=== PATIENT | male | born 1960 | race Caucasian/White ===

== ENCOUNTER 2016-07-08 23:45 | Emergency (ER) | payer BC ==
[2016-07-09] MEDS ORDERED: Sodium Chloride 0.9% 1000 ML 1,000 ML IV STA (00:15)
[2016-07-09] MEDS ORDERED: BENADRYL 50 MG/ML IV ONE (00:15)
[2016-07-09] MEDS ORDERED: MORPHINE SULFATE 10 MG/ML IV ONE (00:15)
[2016-07-09] MEDS ORDERED: MORPHINE SULFATE 10 MG/ML ONE (00:20)
[2016-07-09] MEDS ORDERED: BENADRYL 50 MG/ML ONE (00:20)
[2016-07-09] MEDS ORDERED: Sodium Chloride 0.9% 1000 ML 1,000 ML ONE (00:20)
[2016-07-09 00:30] LABS: Mean Cell Volume 84.8 fl (78-100); Mean Corpuscular Hemoglobin 28.8 pg (26-32); Mean Platelet Volume 9.1 fl (6-9.5); Platelet Count 264 K/mm3 (150-450); Red Blood Count 4.93 M/mm3 (4.1-5.6); Red Cell Distribution Width 12.5 % (11.5-14.0); White Blood Count 11.4 K/mm3 (4.0-10.5)
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
[2016-07-09 00:42] LABS: COMPLETE URINE MICROSCOPIC? YES; Collection Type CLEAN CATCH; Mucus SLIGHT /HPF (NEGATIVE); WBC 0-2 /HPF (0-5)
[2016-07-09 00:43] LABS: Bacteria FEW /HPF (NEGATIVE); Epithelial Cells RARE /HPF (FEW)
[2016-07-09] MEDS ORDERED: MORPHINE SULFATE 4 MG INJ IV ONE (00:52)
[2016-07-09 00:57] LABS: ALBUMIN 3.4 g/dL (3.4-5.0); ALKALINE PHOSPHATASE 74 U/L (46-116); ANION GAP 10.6 MEQ/L (5-15); BILIRUBIN,TOTAL 0.3 mg/dL (0.2-1.0); BLOOD UREA NITROGEN 17 mg/dL (9-20); CHLORIDE 103 mEq/L (98-107); Carbon Dioxide 30.3 mEq/L (21-32); Glucose 102 MG/DL (70-110); Potassium 3.3 mEq/L (3.5-5.1); SGOT/AST 16 U/L (15-37); SGPT/ALT 48 U/L (12-78); SODIUM 141 mEq/L (136-145); Total Protein 7.4 gm/dL (6.4-8.2)
[2016-07-09] MEDS ORDERED: TORAdol 30 mg Injection IV ONE (00:59)
[2016-07-09] MEDS ORDERED: MORPHINE SULFATE 4 MG INJ ONE (01:01)
[2016-07-09] MEDS ORDERED: TORAdol 30 mg Injection ONE (01:04)
[2016-07-09 01:26] LABS: ATYPICAL LYMPHS 1 %; BAND 2 % (0.0-2.0); Platelet Estimate NORMAL (NORMAL); Total Cells Counted 100
[2016-07-09] MEDS ORDERED: NORCO 5/325 MG PO ONE ×2 (03:40)
[2016-07-09] MEDS ORDERED: ZOFRAN ODT 4 MG PO ONE (03:41)
[2016-07-09] MEDS ORDERED: NORCO 5/325 MG ONE (03:44)
[2016-07-09] MEDS ORDERED: ZOFRAN ODT 4 MG ONE (03:44)
[2016-07-09 04:28] VITALS: BP 144/96; PULSE 70; O2SAT 95
--- NOTE | 2016-07-09 09:03 | XRAY ---
Indication: Left flank pain. Multiple contiguous axial images obtained through the abdomen and pelvis without contrast using renal stone protocol. Comparison: None Lung bases demonstrates minimal bibasilar dependent atelectasis. Heart is not enlarged. There is a 1 cm left UVJ calculus with a portion of the calculus in the bladder lumen. The proximal left ureter is prominent along with moderate hydronephrosis and perinephric stranding consistent with obstructive uropathy. No renal calculus or evidence for obstructive uropathy in the right system. Noncontrasted stomach and bowel loops appear nonobstructed. Scattered descending/sigmoid diverticulosis. Normal appendix. No free fluid/air. 13.8 cm splenomegaly. Remaining liver, gallbladder, pancreas, adrenal glands, and urinary bladder appear unremarkable for noncontrast exam. Minimal aortoiliac calcifications without AAA. Osseous structures intact with minimal spinal degenerative changes. Impression: 1. 1 cm left UVJ calculus producing partial obstruction as detailed. 2. Incidental splenomegaly and colonic diverticulosis. Comment: Preliminary interpretation was made by [facility]. No critical discrepancy. CT DI is 22.84
== END 2016-07-09 04:29 | disposition home or self-care (01) ==
LOC: ED 23:45
DX: N23 Unspecified renal colic (principal); N20.1 Calculus of ureter
CPT/HCPCS: 36000; 36415; 74176; 80053; 81000; 85025; 87086; 96360; 96374; 96375; 99283; J1200; J1885; J2270; Q0162

== ENCOUNTER 2017-02-22 19:22 | Emergency (ER) | payer BC ==
[2017-02-22 19:31] VITALS: BP 146/92
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
[2017-02-22] MEDS ORDERED: Norco 10/325 MG Tablet PO ONE (20:36)
[2017-02-22] MEDS ORDERED: Norco 10/325 MG Tablet ONE (20:39)
[2017-02-22 20:46] VITALS: PULSE 62; O2SAT 99
--- NOTE | 2017-02-23 08:52 | XRAY ---
Indication: Pain. No known injury. Comparison: None 3 views of the left hand demonstrates punctate radial wrist and thenar eminence soft tissue foreign bodies. No other bony, articular, or soft tissue abnormalities.
== END 2017-02-22 20:46 | disposition home or self-care (01) ==
LOC: ED 19:22
DX: D36.10 Benign neoplasm of peripheral nerves and autonomic nervous system, unspecified (principal); M79.642 Pain in left hand
CPT/HCPCS: 73130; 99283; 99284; A9270-GY

== ENCOUNTER 2017-10-10 18:42 | Emergency (ER) | payer BC ==
[2017-10-10] MEDS ORDERED: TORAdol 30 mg Injection IV ONE (19:21)
[2017-10-10] MEDS ORDERED: TORAdol 30 mg Injection ONE (19:24)
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
[2017-10-10 19:49] LABS: BASOPHIL % 0.3 % (0.0-0.4); Basophil (Absolute #) 0.03 (0-0.4); Eosinophil % 0.2 % (0.00-5.0); Eosinophil (Absolute #) 0.02 (0-0.5); Granulocyte Absolute (ANC) 8.42 (1.4-6.9); Granulocytes % 74.7 % (36.0-66.0); Hematocrit 41.5 % (42-50); Hemoglobin 14.2 gm/dl (12.5-18.0); Lymphocyte (Absolute #) 1.75 (1.0-4.6); Lymphocytes % 15.5 % (24.0-44.0); Mean Cell Volume 82.7 fl (78-100); Mean Corpuscular Hemoglobin 28.3 pg (26-32); Mean Corpuscular Hgb Concent. 34.2 g/dl (32-36); Mean Platelet Volume 9.6 fl (6-9.5); Monocyte (Absolute #) 1.05 (0.0-1.3); Monocytes % 9.3 % (0.0-12.0); Platelet Count 236 K/mm3 (150-450); Red Blood Count 5.02 M/mm3 (4.1-5.6); Red Cell Distribution Width 12.6 % (11.5-14.0); White Blood Count 11.3 K/mm3 (4.0-10.5)
[2017-10-10 19:50] LABS: Appearance CLEAR (CLEAR); Bilirubin NEGATIVE (NEGATIVE); Blood NEGATIVE Ery/ul (0-5); Glucose NEGATIVE (NEGATIVE); Ketones NEGATIVE (NEGATIVE); Leukocyte Esterase NEGATIVE (NEGATIVE); Nitrite NEGATIVE (NEGATIVE); Protein,Urine Dip NEGATIVE (Negative); Urobilinogen NORMAL mg/dL (0-1)
[2017-10-10 19:56] LABS: ANION GAP 12.5 MEQ/L (5-15); BLOOD UREA NITROGEN 23 mg/dL (9-20); CHLORIDE 104 mmol/L (98-107); Calcium 9.2 mg/dL (8.4-10.2); Carbon Dioxide 27 mmol/L (22-30); Creatinine 1 1.26 mg/dL (0.66-1.25); Glucose 102 mg/dL (74-106); SODIUM 140 mmol/L (137-145)
[2017-10-10] MEDS ORDERED: NORCO 5/325 MG PO ONE (22:15)
[2017-10-10] MEDS ORDERED: NORCO 5/325 MG ONE (22:17)
[2017-10-10 22:21] VITALS: O2SAT 97
[2017-10-10 22:36] VITALS: BP 146/86; PULSE 72
--- NOTE | 2017-10-11 08:46 | XRAY ---
Indication: Rib pain, right greater than left. Multiple contiguous axial images obtained through the chest using 80 cc Isovue 370 contrast. Comparison: None Mild bilateral dependent atelectasis. No suspicious pulmonary mass, infiltrate, or effusion. Heart is not enlarged. Aorta is normal in course and caliber. Right hilar calcified node. No pathologic mediastinal/hilar lymphadenopathy. Bony thorax intact with minimal spinal bridging osteophytes. CT abdomen reported separately. Impression: Bilateral dependent atelectasis. Remaining CT chest with contrast exam is negative. Comment: Preliminary interpretation was made by [facility]. No discrepancy. CT DI 22.45
--- NOTE | 2017-10-11 08:50 | XRAY ---
Indication: Rib/back pain, right greater than left. Multiple contiguous axial images obtained through the abdomen and pelvis using 80 cc Isovue 370 contrast. Comparison: CT renal stone study July 09, 2016. CT chest reported separately. Noncontrasted stomach and bowel loops appear nonobstructed. Normal appendix. Again descending/sigmoid diverticulosis without diverticulitis. No free fluid/air. Spleen remains enlarged measuring 13.5 cm in greatest axial dimension. Remaining liver, gallbladder, pancreas, spleen, adrenal glands, kidneys, ureters, and bladder appear unremarkable. There remains minimal aortoiliac calcifications. No AAA or pathologic retroperitoneal lymphadenopathy. Osseous structures intact again with minimal spinal degenerative changes. Impression: 1. Stable colonic diverticulosis and splenomegaly. 2. No new or acute intra-abdominal/pelvic abnormalities. Comment: Preliminary interpretation was made by [facility]. No critical discrepancy. CT DI 22.42
== END 2017-10-10 22:37 | disposition home or self-care (01) ==
LOC: ED 18:42
DX: V29.9XXA Motorcycle rider (driver) (passenger) injured in unspecified traffic accident, initial encounter (principal); M54.6 Pain in thoracic spine; K21.9 Gastro-esophageal reflux disease without esophagitis; Z79.899 Other long term (current) drug therapy
CPT/HCPCS: 36000; 36415; 71260; 74177; 80048; 81002; 85025; 96374; 99283; 99284; J1885; A9270-GY

== ENCOUNTER 2019-02-13 20:43 | Emergency (ER) | payer BC ==
[2019-02-13 21:21] VITALS: O2SAT 97
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
[2019-02-13 22:42] VITALS: BP 149/91; PULSE 88
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
== END 2019-02-13 22:42 | disposition home or self-care (01) ==
LOC: ED 20:43
DX: S52.502A Unspecified fracture of the lower end of left radius, initial encounter for closed fracture (principal); S60.212A Contusion of left wrist, initial encounter; M25.532 Pain in left wrist; V86.56XA Driver of dirt bike or motor/cross bike injured in nontraffic accident, initial encounter; Y93.55 Activity, bike riding
CPT/HCPCS: 73110; 99283; L3908

== ENCOUNTER 2020-06-09 13:08 | Emergency (ER) | payer BC ==
[2020-06-09] MEDS ORDERED: Rocephin 1000 MG INJ IM ONE (13:25)
[2020-06-09] MEDS ORDERED: CLEOCIN 150 MG CAPSULE PO ONE (13:26)
[2020-06-09] MEDS ORDERED: CLEOCIN 150 MG CAPSULE ONE (13:27)
[2020-06-09] MEDS ORDERED: XYLOCAINE 1% HCL 20 ML MDV ONE (13:28)
[2020-06-09] MEDS ORDERED: Rocephin 1000 MG INJ ONE (13:28)
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
[2020-06-09 13:38] VITALS: BP 147/89; PULSE 81; O2SAT 98
== END 2020-06-09 13:48 | disposition home or self-care (01) ==
LOC: ED 13:08
DX: L03.116 Cellulitis of left lower limb (principal)
CPT/HCPCS: 96372; 99283; J0696; A9270-GY

== ENCOUNTER 2020-07-17 05:46 | Day surgery (SDC) | payer BC ==
[2020-07-17] MEDS ORDERED: Lactated Ringers 1,000 ML IV SCH (06:30)
[2020-07-17] MEDS ORDERED: DIPRIVAN 200 MG/20 ML IV ONE (07:28)
[2020-07-17] MEDS ORDERED: Xylocaine-Mpf 2% 5 Ml Vial ONE (07:28)
[2020-07-17 08:49] VITALS: BP 138/83; PULSE 60; O2SAT 99
--- NOTE | 2020-07-17 09:47 | OP ---
SURGERY DATE/TIME: 07/17/2020 0733 PREOPERATIVE DIAGNOSES: 1) Rectal bleeding. 2) Family history of esophageal cancer. POSTOPERATIVE DIAGNOSES: 1) Gastric polyps. 2) Diverticulosis. 3) Rectal polyp. PROCEDURES: 1) Diagnostic EGD. 2) Colonoscopy. SURGEON: Wilmar Lubin M.D. ANESTHESIA: MAC by Elver Patricio CRNA. ESTIMATED BLOOD LOSS: Minimal. SPECIMENS: There was cold forceps biopsy of gastric polyps x2 and cold forceps polypectomy of small rectal polyp. DESCRIPTION OF PROCEDURE: After informed written consent was obtained, the patient was taken to the endoscopy suite. Bite block was inserted and anesthesia was titrated to desired level of consciousness. The endoscope was inserted in the posterior oropharynx and under direct visualization the esophagus was easily traversed. The esophageal mucosa appeared normal as well as the gastroesophageal junction. Upon entry into the gastric cavity there was rugated gastric mucosa with numerous fundal gland polyps present with no obvious ulceration, bleeding or other abnormalities. The pylorus was traversed and the duodenum had a normal mucosal appearance free of any lesion or defects. Two sales training representative fundal gland polyps were biopsied with cold forceps and sent for pathology testing. Upon withdrawal again the gastroesophageal junction and esophageal mucosa appeared within normal limits. The scope was removed and the scopes were switched. Digital rectal exam showed normal sphincter tone and no internal lesions. The scope was inserted in the rectum and sequentially the entire colonic mucosa was traversed. The level of the cecum was reached and verified with direct visualization of the ileocecal valve. Upon withdrawal careful mucosal inspection revealed no gross abnormalities until the level of the proximal rectum was reached. Small sessile polyps were removed with cold forceps. Retroflexion showed no other internal lesions. The scope was removed and the patient was transferred to the recovery room in good condition. He was advised to follow up in a week for pathology results.
== END 2020-07-17 09:05 | disposition home or self-care (01) ==
LOC: SDC 05:46
PROVIDERS: ATTEND Family Medicine
DX: K31.7 Polyp of stomach and duodenum (principal); K57.30 Diverticulosis of large intestine without perforation or abscess without bleeding; K62.1 Rectal polyp; Z80.0 Family history of malignant neoplasm of digestive organs
CPT/HCPCS: 88305; J2704

== ENCOUNTER 2021-01-16 19:42 | Emergency (ER) | payer BC ==
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
[2021-01-16] MEDS ORDERED: Sodium Chloride 0.9% 1000 ML 1,000 ML IV STA (19:58)
[2021-01-16] MEDS ORDERED: Zofran 4 MG/2 ML VIAL IV ONE (20:00)
[2021-01-16] MEDS ORDERED: Sodium Chloride 0.9% 1000 ML 0 ML ONE (20:05)
[2021-01-16] MEDS ORDERED: Zofran 4 MG/2 ML VIAL ONE (20:07)
[2021-01-16 20:17] LABS: Absolute Neutrophil Ct (ANC) 6.27 (1.4-6.9); BASOPHIL % 0.4 % (0.0-0.4); Basophil (Absolute #) 0.04 (0-0.4); Eosinophil % 0.7 % (0.00-5.0); Eosinophil (Absolute #) 0.07 (0-0.5); Hematocrit 43.9 % (42-50); Hemoglobin 14.9 gm/dl (12.5-18.0); Lymphocyte (Absolute #) 2.45 (1.0-4.6); Lymphocytes % 25.6 % (24.0-44.0); Mean Cell Volume 85.4 fl (78-100); Mean Corpuscular Hgb Concent. 33.9 g/dl (32-36); Monocyte (Absolute #) 0.73 (0.0-1.3); Monocytes % 7.6 % (0.0-12.0); Neutrophil % 65.7 % (36.0-66.0); Platelet Count 264 K/mm3 (150-450); Red Blood Count 5.14 M/mm3 (4.1-5.6); Red Cell Distribution Width 12.7 % (11.5-14.0); White Blood Count 9.6 K/mm3 (4.0-10.5)
[2021-01-16 20:32] LABS: ALBUMIN 4.2 g/dL (3.5-5.0); ANION GAP 14.3 MEQ/L (5-15); BILIRUBIN,TOTAL 0.5 mg/dL (0.2-1.3); Calcium 8.8 mg/dL (8.4-10.2); Creatinine 1 1.76 mg/dL (0.66-1.25); EST GLOMERULAR FILTRATION RATE 42.5 ML/MIN; MAGNESIUM 1.9 mg/dL (1.6-2.3); Potassium 3.7 mmol/L (3.5-5.1); Total Protein 7.6 g/dL (6.3-8.2)
[2021-01-16] MEDS ORDERED: Sodium Chloride 0.9% 500 ML 500 ML IV ONE (21:47)
[2021-01-16 22:11] LABS: Appearance CLEAR (CLEAR); Bacteria RARE /HPF (NEGATIVE); Bilirubin NEGATIVE (NEGATIVE); Blood LARGE Ery/ul (0-5); Glucose NEGATIVE (NEGATIVE); Ketones NEGATIVE (NEGATIVE); Leukocyte Esterase NEGATIVE (NEGATIVE); Mucus SLIGHT /HPF (NEGATIVE); Nitrite NEGATIVE (NEGATIVE); Protein,Urine Dip 100 (Negative); Specific Gravity 1.011 (1.005-1.025); Urobilinogen 2 mg/dL (0-1)
[2021-01-16 22:12] LABS: RBC >101 /HPF (0-2)
[2021-01-16] MEDS ORDERED: Hydromorphone 1 mg/ml Injection IV ONE (22:36)
[2021-01-16] MEDS ORDERED: Hydromorphone 1 mg/ml Injection ONE (23:14)
[2021-01-16] MEDS ORDERED: Sodium Chloride 0.9% 1000 ML 1,000 ML ONE (23:15)
[2021-01-17 01:06] VITALS: BP 135/63; PULSE 72; O2SAT 95
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
== END 2021-01-17 01:06 | disposition home or self-care (01) ==
LOC: ED 19:42
DX: S30.0XXA Contusion of lower back and pelvis, initial encounter (principal); S19.9XXA Unspecified injury of neck, initial encounter; S39.92XA Unspecified injury of lower back, initial encounter; R42 Dizziness and giddiness; R11.0 Nausea; V29.88XA Motorcycle rider (driver) (passenger) injured in other specified transport accidents, initial encounter; Z79.899 Other long term (current) drug therapy
CPT/HCPCS: 36415; 70450; 72170; 72220; 74176; 80053; 81001; 83735; 84484; 85025; 87086; 93005; 93041; 94760; 96374; 99284; J1170; J2405

== ENCOUNTER 2022-09-13 13:23 | Emergency (ER) | payer BC ==
[2022-09-13] MEDS ORDERED: XYLOCAINE 1%/Epi 1:100000 MDV 20 ML IJ ONE (13:35)
[2022-09-13 13:41] VITALS: O2SAT 98
[2022-09-13] MEDS ORDERED: XYLOCAINE 1%/Epi 1:100000 MDV 20 ML ONE (13:45)
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
[2022-09-13] MEDS ORDERED: Rocephin 1000 MG INJ IM ONE (14:09)
[2022-09-13] MEDS ORDERED: Adacel Vial IM ONE ×2 (14:10→14:13)
[2022-09-13] MEDS ORDERED: Rocephin 1000 MG INJ ONE (14:13)
[2022-09-13] MEDS ORDERED: BACIGUENT PACKET ONE (14:23)
[2022-09-13 14:28] VITALS: BP 176/88; PULSE 67
--- NOTE | 2022-09-13 19:22 | XRAY ---
Indication: Nail index finger. Comparison: February 22, 2017 3 view left hand demonstrates new foreign body nail traversing soft tissues distal 2nd finger. New ring base 4th finger. Stable punctate soft tissue foreign body radial aspect wrist and thenar eminence. No other bony, articular, or soft tissue abnormalities.
== END 2022-09-13 14:38 | disposition home or self-care (01) ==
LOC: ED 13:23
DX: S61.341A Puncture wound with foreign body of left index finger with damage to nail, initial encounter (principal); W45.0XXA Nail entering through skin, initial encounter; W29.4XXA Contact with nail gun, initial encounter; E78.5 Hyperlipidemia, unspecified; Z79.899 Other long term (current) drug therapy
CPT/HCPCS: 10120; 73130; 90471; 90715; 96372; 99283; 99291; J0696; A9270-GY

== ENCOUNTER 2023-09-10 03:50 | Emergency (ER) | payer BC ==
[2023-09-10 04:10] VITALS: TEMP 98.3
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
[2023-09-10] MEDS ORDERED: Rocephin 1000 MG INJ ONE (05:00)
[2023-09-10] MEDS ORDERED: XYLOCAINE 1% HCL 20 ML MDV ONE (05:00)
[2023-09-10] MEDS ORDERED: DELTASONE 20 MG ONE (05:00)
[2023-09-10] MEDS: DELTASONE 20 MG PO ONE (05:05)
[2023-09-10 05:10] LABS: INFLUENZA A NEGATIVE (NEGATIVE); INFLUENZA B NEGATIVE (NEGATIVE); RESPIRATORY SYNCTIAL VIRUS NEGATIVE (NEGATIVE); SARS-CoV-2 Xpert Express NEGATIVE (NEGATIVE)
[2023-09-10] MEDS: Rocephin 1000 MG INJ IM ONE (05:10)
[2023-09-10 07:25] VITALS: BP 132/87; PULSE 78; RESP 16; O2SAT 97
--- NOTE | 2023-09-10 08:50 | XRAY ---
Indication: Cough. Comparison: None Portable chest inflated and clear. Heart and mediastinal structures within normal limits. Bony thorax intact with mild degenerative changes. Impression: Nonacute chest.
== END 2023-09-10 06:38 | disposition home or self-care (01) ==
LOC: ED 03:50
DX: J40 Bronchitis, not specified as acute or chronic (principal); E78.5 Hyperlipidemia, unspecified; Z20.828 Contact with and (suspected) exposure to other viral communicable diseases
CPT/HCPCS: 0241U; 71045; 96372; 99283; J0696; A9270-GY

== ENCOUNTER 2024-02-28 09:39 | Observation (INO) | payer BC ==
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
[2024-02-28] MEDS ORDERED: Sodium Chloride 0.9% 1000 ML 1,000 ML ONE (10:16)
[2024-02-28] MEDS ORDERED: NITRO-BID 2% UD PACKETS ONE (10:16)
[2024-02-28] MEDS: Sodium Chloride 0.9% 1000 ML 1,000 ML IV SCH (10:21)
[2024-02-28] MEDS: NITRO-BID 2% UD PACKETS TOP ONE (10:21)
[2024-02-28 10:26] LABS: Absolute Neutrophil Ct (ANC) 2.78 x10^3/uL (1.78-5.38); BASOPHIL % 0.9 % (0.2-1.2); Basophil (Absolute #) 0.04 x10^3/uL (0.01-0.08); Eosinophil % 2.3 % (0.8-7.0); Hematocrit 37.6 % (40.1-51.0); Hemoglobin 12.5 g/dL (13.7-17.5); IMMATURE GRAN # 0.01 x10^3u/L (0.001-0.031); IMMATURE GRAN % 0.2 % (0.001-0.429); Lymphocyte (Absolute #) 1.04 x10^3/uL (1.32-3.57); Mean Corpuscular Hemoglobin 28.6 pg (25.7-32.2); Mean Corpuscular Hgb Concent. 33.2 g/dL (32.3-36.5); Mean Platelet Volume 9.7 fL (9.4-12.4); Monocyte (Absolute #) 0.37 x10^3/uL (0.30-0.82); Monocytes % 8.5 % (5.3-12.2); Neutrophil % 64.1 % (34.0-67.9); Platelet Count 194 x10^3/uL (163-337); Red Blood Count 4.37 x10^6/uL (4.63-6.08); Red Cell Distribution Width 11.7 % (11.6-14.4); White Blood Count 4.3 x10^3/uL (4.23-9.07)
--- NOTE | 2024-02-28 10:35 | XRAY ---
Indication: Chest pain. Comparison: September 10, 2023 Portable chest unchanged again demonstrating normal heart and lungs. Bony thorax intact with mild degenerative changes. No new/acute findings.
[2024-02-28 10:49] LABS: ALBUMIN 3.7 g/dL (3.5-5.0); ANION GAP 7.6 MEQ/L (5-15); BILIRUBIN,TOTAL 0.7 mg/dL (0.2-1.3); Calcium 9.1 mg/dL (8.4-10.2); Creatinine 1 1.08 mg/dL (0.66-1.25); EST GLOMERULAR FILTRATION RATE 78.1 ML/MIN; Potassium 4.6 mmol/L (3.5-5.1); Total Protein 6.8 g/dL (6.3-8.2)
--- NOTE | 2024-02-28 13:00 | XRAY ---
Indication: Chest pain. Pulmonary embolus. Aneurysm. Normal same day chest x-ray. Conventional contrast enhanced CTA chest performed using 100 cc Isovue 370 contrast. Sagittal and coronal reformatted images obtained. Comparison: None No pulmonary embolus. Aorta is normal in course and caliber with very minimal arch calcifications. Heart not enlarged. No pathologic mediastinal/hilar lymphadenopathy. Lungs inflated and clear. Bony thorax intact with mild degenerative changes throughout the spine. Limited upper abdomen including adrenal glands are unremarkable. Impression: Very minimal aortic arch arteriosclerotic calcifications. Remaining CTA chest with contrast exam normal.
[2024-02-28 15:49] VITALS: PULSE 57
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
[2024-02-28] MEDS: TYLENOL 325 MG PO PRN (16:36)
[2024-02-28 19:14] VITALS: BP 119/67; RESP 16; TEMP 98; O2SAT 98
[2024-02-29] MEDS ORDERED: Zestril 20 MG PO SCH (10:00)
[2024-02-29] MEDS ORDERED: Zocor 10MG PO SCH (10:00)
[2024-02-29] MEDS ORDERED: Singulair 10 MG PO SCH (10:00)
[2024-02-29] MEDS ORDERED: ECOTRIN 81 MG PO SCH (10:00)
[2024-02-29] MEDS ORDERED: Protonix 40MG Tablet PO SCH (10:00)
[2024-02-29] MEDS ORDERED: THERAGRAN MULTIVITAMIN PO SCH (10:00)
[2024-03-01] MEDS ORDERED: Glucophage 500 MG PO SCH (12:30)
== END 2024-02-28 18:50 | disposition home or self-care (01) ==
LOC: ED 09:39 → MED SURG 15:25
PROVIDERS: ADMIT Internal Medicine; ATTEND Internal Medicine
DX: R07.9 Chest pain, unspecified (principal); E78.5 Hyperlipidemia, unspecified; K21.9 Gastro-esophageal reflux disease without esophagitis; R73.03 Prediabetes; Z79.899 Other long term (current) drug therapy
CPT/HCPCS: 36000; 36415; 71045; 71275; 80053; 82550; 83880; 84484; 85025; 85379; 93005; 93268; 99285; A9270-GY; G0378

== ENCOUNTER 2025-06-07 08:51 | Day surgery (SDC) | payer BC ==
--- NOTE | 2025-06-06 20:59 | HP ---
HISTORY OF PRESENT ILLNESS: The patient is a 65-year-old male who presents with some heartburn. His father had esophageal cancer. Colonoscopy was 5 to 7 years ago; he had polyps. PAST MEDICAL HISTORY: Hypertension, GERD, hyperlipidemia, diabetes. HOME MEDICATIONS: Amlodipine, aspirin, atorvastatin, fluticasone, lisinopril, metformin, Singulair, Mucinex, omeprazole. ALLERGIES: Negative. PAST SURGICAL HISTORY: Kidney stone removal, hernia repair. SOCIAL HISTORY: Negative. FAMILY HISTORY: Heart disease, esophageal cancer. REVIEW OF SYSTEMS: CONSTITUTIONAL: Denies fever or chills. CHEST: Denies shortness of breath. CARDIOVASCULAR: Denies chest pain. ABDOMEN: Reports heartburn, epigastric pain. PHYSICAL EXAMINATION: GENERAL: No acute distress. CARDIOVASCULAR: Regular rate and rhythm. RESPIRATORY: Nonlabored. No shortness of breath. ABDOMEN: Soft. IMPRESSION: Heartburn, family history of esophagus cancer, 5- to 7-year followup of colon polyps. PLAN: EGD and colonoscopy with Dr. Rober Cassidy. This report was dictated for Dr. Cassidy by Taylor Ellison NP
[~2025-06-07 08:51] MED LIST: Lactated Ringers 1,000 ML IV ONE
[2025-06-07] MEDS ORDERED: Xylocaine-Mpf 2% 5 Ml Vial ONE (11:25)
[2025-06-07] MEDS ORDERED: propofoL IV ONE ×2 (11:25→11:51)
[2025-06-07] MEDS ORDERED: GlucaGen 1 MG ONE (12:01)
[2025-06-07 13:05] VITALS: PULSE 71; RESP 16; TEMP 97.1
[2025-06-07 13:13] VITALS: BP 126/66; O2SAT 97
--- NOTE | 2025-06-08 10:28 | OP ---
SURGERY DATE/TIME: 06/07/2025 [id number] PREOPERATIVE DIAGNOSES: 1) Persistent reflux. 2) 5-year followup. 3) History of polyps. POSTOPERATIVE DIAGNOSES: 1) Patient has grade 3/4 gastroesophageal reflux disease with a very slight Schatzki's ring and stricture about size 44. 2) He has 1-inch hiatal hernia. 3) He has a mild gastritis. PROCEDURES: 1) Esophagogastroduodenoscopy with cold biopsy of gastritis. 2) Colonoscopic examination to cecum. 3) Hot polypectomy x4. SURGEON: Rober Cassidy MD [employer] CLERK: Family Practice 3 ANESTHESIA: General. COMPLICATIONS: None. CONDITION: Stable. DESCRIPTION OF PROCEDURE: Patient taken to endoscopy, left lateral decubitus position. Scope introduced. Pharyngoesophageal junction normal. Esophagus normal. Down to 2 cm above the EG junction, there was rim of esophagitis 2 cm, 360 degrees. There was a slight Schatzki's ring and stricture. There was 1-inch hiatal hernia. Fundus, body, antrum, there was a mild gastritis. Pylorus normal. Duodenal bulb normal. Second portion normal. Scope withdrawn and looped upon itself. A 1-inch hiatal hernia. Scope was withdrawn. Anal examination, satisfactory tone, satisfactory prostate. Scope introduced. Anus, rectum satisfactory. Scope advanced to the cecum. Base of the cecum, ileocecal valve, appendiceal orifice area satisfactory. There was 1 cm polyp in the base of the cecum, taken with a hot biopsy forceps to extinction. Ascending, 1 cm, taken to extinction. It was fairly sessile. Descending colon, 8 mm, hot biopsy extinction. Distal sigmoid, 8 mm, hot biopsy extinction. All 4 polyps were taken with a hot biopsy forceps in 4 different jars. Patient tolerated the procedure satisfactorily. Anticipated followup 5 years. He will return to the office 2 weeks for his pathology results. He may need adjustments on his acid medications.
== END 2025-06-07 13:20 | disposition home or self-care (01) ==
LOC: SDC 08:51
PROVIDERS: ATTEND Surgery
DX: Z09 Encounter for follow-up examination after completed treatment for conditions other than malignant neoplasm (principal); Z86.0100 Personal history of colon polyps, unspecified; Z80.8 Family history of malignant neoplasm of other organs or systems; K21.9 Gastro-esophageal reflux disease without esophagitis; K22.2 Esophageal obstruction; K44.9 Diaphragmatic hernia without obstruction or gangrene; K29.70 Gastritis, unspecified, without bleeding; D12.0 Benign neoplasm of cecum; D12.4 Benign neoplasm of descending colon